=== PATIENT | male | born 1995 | race Caucasian/White ===

== ENCOUNTER 2016-06-06 12:38 | Emergency (ER) | payer SELFPAY ==
--- NOTE | 2016-06-06 13:44 | ED ORDER SUMMARY ---
..... Patient: TRUMAN VELAZQUEZ OrderSheet [facility] VisitID: [id number] [address] [place] [address] 21y, M Registration Date/Time: 06/06/2016 ORDER SHEET Weight: 70.3 kg (stated) Allergies: No Known Drug Allergy GENERAL ORDERS: Culture, Strep Screen Urgent (13:12 06/06/2016 Cristian Chilel) (13:13 Zayra R.N.) MEDICATION ORDERS: Toradol IM 60 mg (NOW) (13:12 06/06/2016 Cristian Chilel) (Ack 13:13 Zayra R.N.) (13:28 Anne Wright.Jonatan) IV FLUIDS: ORDER SHEET NOTES: [Electronically signed by Satya Magallon Dr. (13:47 06/06/2016)] [Electronically signed by Shailesh Michele R.N. (15:42 06/06/2016)] [Electronically locked/signed by Shailesh Michele R.N. (15:42 06/06/2016)]
--- NOTE | 2016-06-06 13:44 | ED NURSING NOTES ---
Clinical Report - Nurses [facility] [address] [place] [address] 06/06/2016 12:40 Patient: TRUMAN VELAZQUEZ TRIAGE Triage time 12:46 Jun 06 2016. Acuity: LEVEL 4. Chief Complaint: RIGHT EAR PAIN. --12:52 Shailesh Michele R.N. 12:46 06/06/16. BP: 146/94. HR: 105. RR: 18. O2 saturation: 95% on room air. Temp: 97.8 F. Pain level now: 11/24. --12:52 Shailesh Michele R.N. Weight: 70.3 kg stated. Height/Length: 70 inches Per Patient. BMI: 22.2. --12:45 Shailesh Michele R.N. Medications None. --12:46 Shailesh Michele R.N. Allergies No Known Drug Allergy. --12:46 Shailesh Michele R.N. History Arrived by private vehicle. Historian: patient. Accompanied by friend. Onset. (a few days ago). He has had fever (pt reported). He has had moderate right-sided ear drainage. The ear drainage on the right has been associated with ear pain. He has had a sore throat. PAST MEDICAL HX: Negative. Immunizations: up-to-date. SURGERY HX: ( 12 years ago hernia rx, LLQ.). SOCIAL HX: Heavy tobacco smoker (cigarette)- less than 1 pack per day. Occasional alcohol use. Last drink was 2. History of drug use: marijuana. Recently used drugs days ago. FALL RISK ASSESSMENT: Fall risk assessment completed. No fall risk identified. NUTRITIONAL RISK ASSESSMENT: The nutritional risk assessment revealed no deficiencies. FUNCTIONAL ASSESSMENT: Functional assessment: no impairments noted. LEARNING NEEDS ASSESSMENT: The learning needs assessment revealed no barriers. SKIN INTEGRITY ASSESSMENT: Skin integrity risk assessment completed. No skin integrity risk identified. --12:52 Shailesh Michele R.N. Interventions ID band on patient. To treatment room. --12:52 Shailesh Michele R.N. PHYSICAL ASSESSMENT Ambulatory to room. GENERAL / NEURO / PSYCH: Alert. Appears in no acute distress. HEENT: No facial asymmetry noted. Pupils equal, round and reactive to light. Right-sided hearing deficit, as tested grossly. Nares within normal limits. RESPIRATORY: Respirations not labored. CVS: Capillary refill less than 2 seconds. SKIN: Skin is warm and dry. --12:53 Shailesh Michele R.N. NURSING PROGRESS NOTES Monitoring of patient in place. Head of bed elevated. Reassurance given. Two patient identifiers checked. Call light placed in reach. Bed placed in lowest position. Patient ready for evaluation- chart flagged. --12:54 Shailesh Michele R.N. 13:00 06/06/16. Checked patient name and birthdate. Throat swab obtained for rapid strep; labeled in the presence of the patient and sent to lab. --13:51 Shailesh Michele R.N. 13:28 06/06/2016 Toradol (Ketorolac Tromethamine) IM 60 mg given. Given in the right ventral gluteus. --13:28 Lissette Butterfield R.N. 13:49 06/06/2016 Toradol IM Response: no adverse reaction pain is improving. The patient feels better. --14:04 Shailesh Michele R.N. DISPOSITION / DISCHARGE 14:00 06/06/16. BP: 130/79. HR: 108. RR: 16. O2 saturation: 95% on room air. Temp: 99.9 F. Pain level now: 410. --14:03 Shailesh Michele R.N. Condition at departure: improved and stable. The goals identified in the patient's plan of care were met. No learning barriers present. Discharge instructions provided and reviewed with the patient. Reviewed medication(s) side effects, precautions, dosing and course information. Prescription(s) given to the patient. Patient verbalized understanding. Written instructions provided in [place]i. The patient was discharged by the physician. He was discharged home and accompanied by chicken cleaner. He left the Emergency Department ambulatory and via private vehicle. Manager Wellness driving. --14:04 Shailesh Michele R.N. Departure time: 1400. --14:04 Shailesh Michele R.N. Locked/Released at 06/06/2016 15:42 by Shailesh Michele R.N.
--- NOTE | 2016-06-06 13:44 | ED CLINICAL REPORT ---
Clinical Report - Physicians/Mid Levels [facility] [address] [place] [address] 06/06/2016 12:40 Patient: TRUMAN VELAZQUEZ Time Seen: 12:46; initial patient contact. Arrived- By private vehicle. Historian- patient. HISTORY OF PRESENT ILLNESS Chief Complaint: EARACHE. This started about 2 days ago and is still present. It was gradual in onset. The patient cannot recall the circumstances at the onset. Modifying factors. Not worsened by anything. Not relieved by anything. Location- right ear. The pain is described as moderate. The patient has had ear pain and drainage. No hearing loss, complaint of foreign body in the ear, ear trauma or recent barotrauma. He has had nasal congestion, sinus pressure and a nasal discharge and sore throat. Similar symptoms previously: None. Recent medical care: Not recently seen/assessed. REVIEW OF SYSTEMS The patient has had fever, chills and enlarged lymph nodes. No cough, difficulty breathing, headache, nausea or vomiting. No skin rash. All systems otherwise negative, except as recorded above. PAST HISTORY Negative. Problems: no known problems. Surgeries: Inguinal hernia repair. Medications: None. Allergies: No Known Drug Allergy. SOCIAL HISTORY Current every day smoker. Occasional alcohol use. No drug use. ADDITIONAL NOTES The nursing notes have been reviewed with agreement regarding the chief complaint, PMH and patient medications and allergies. PHYSICAL EXAM Vital Signs: 06/06/2016 12:46 BP: 146/94. HR: 105. RR: 18. O2 saturation: 95%. Temp: 97.8 F. Pain level now: 9/10. Have been reviewed. Hypertensive. Tachycardic. Respiratory rate normal. Temperature normal. Oxygen saturation normal. Appearance: Alert. Appears to be in pain. Eyes: Eyes normal inspection. Ear (left): Left ear normal. Left tympanic membrane normal. Ear (right): There is moderate erythema, dullness and bulging of the tympanic membrane, fluid behind the tympanic membrane and loss of tympanic membrane landmarks. There is an abnormal light reflex. Right ear normal. Throat: Moderate generalized pharyngeal erythema with right tonsillar swelling and exudate and left tonsillar swelling and exudate. Neck: Moderate right anterior neck and mild left anterior neck lymphadenopathy present. CVS: Normal heart rate and rhythm. Heart sounds normal. Respiratory: No respiratory distress. Breath sounds normal. Skin: Normal skin color. No rash. Neuro: Oriented X 3. LABS, X-RAYS, AND EKG Laboratory Tests: Culture, Strep Screen: (GERI: 06/06/2016 12:55) ( MsgRcvd 06/06/2016 13:37) Final results Test Result Flag Units (Reference) RAPID STREP SCREEN - THROAT CALLED TO: DR. MAGALLON -- DATE: 06/06/16 POSITIVE SCREEN: RAPID STREP SCREEN: POSITIVE FOR GROUP A STREP . PROGRESS AND PROCEDURES Disposition: Discharged home in good condition. Condition: good. CLINICAL IMPRESSION Acute suppurative right otitis media. No perforation of right tympanic membrane. Acute streptococcal pharyngitis INSTRUCTIONS Your Current Medications: CONTINUE TAKING THE FOLLOWING MEDICATIONS: None*. Prescription Medications: Amoxicillin 500 mg tablets: take 1 orally every 8 hours for 10 days. No refills. Diclofenac 50 mg tablets: take 1 tablet orally every 8 hours as needed for pain. Dispense thirty (30). No refill. Follow-up: Screening today revealed the patient's blood pressure to be in the hypertensive range. The patient should follow up with a primary care provider for blood pressure management. Follow-up with: [facility], , , [address], , [place], [address] Follow up as needed. Call for an appointment. (Electronically signed by Satya Magallon Dr. 06/06/2016 13:47)
--- NOTE | 2016-06-06 13:44 | ED CLINICAL REPORT ---
Clinical Report - Physicians/Mid Levels [facility] [address] [place] [address] 06/06/2016 12:40 Patient: TRUMAN VELAZQUEZ Time Seen: 12:46; initial patient contact. Arrived- By private vehicle. Historian- patient. HISTORY OF PRESENT ILLNESS Chief Complaint: EARACHE. This started about 2 days ago and is still present. It was gradual in onset. The patient cannot recall the circumstances at the onset. Modifying factors. Not worsened by anything. Not relieved by anything. Location- right ear. The pain is described as moderate. The patient has had ear pain and drainage. No hearing loss, complaint of foreign body in the ear, ear trauma or recent barotrauma. He has had nasal congestion, sinus pressure and a nasal discharge and sore throat. Similar symptoms previously: None. Recent medical care: Not recently seen/assessed. REVIEW OF SYSTEMS The patient has had fever, chills and enlarged lymph nodes. No cough, difficulty breathing, headache, nausea or vomiting. No skin rash. All systems otherwise negative, except as recorded above. PAST HISTORY Negative. Problems: no known problems. Surgeries: Inguinal hernia repair. Medications: None. Allergies: No Known Drug Allergy. SOCIAL HISTORY Current every day smoker. Occasional alcohol use. No drug use. ADDITIONAL NOTES The nursing notes have been reviewed with agreement regarding the chief complaint, PMH and patient medications and allergies. PHYSICAL EXAM Vital Signs: 06/06/2016 12:46 BP: 146/94. HR: 105. RR: 18. O2 saturation: 95%. Temp: 97.8 F. Pain level now: 9/10. Have been reviewed. Hypertensive. Tachycardic. Respiratory rate normal. Temperature normal. Oxygen saturation normal. Appearance: Alert. Appears to be in pain. Eyes: Eyes normal inspection. Ear (left): Left ear normal. Left tympanic membrane normal. Ear (right): There is moderate erythema, dullness and bulging of the tympanic membrane, fluid behind the tympanic membrane and loss of tympanic membrane landmarks. There is an abnormal light reflex. Right ear normal. Throat: Moderate generalized pharyngeal erythema with right tonsillar swelling and exudate and left tonsillar swelling and exudate. Neck: Moderate right anterior neck and mild left anterior neck lymphadenopathy present. CVS: Normal heart rate and rhythm. Heart sounds normal. Respiratory: No respiratory distress. Breath sounds normal. Skin: Normal skin color. No rash. Neuro: Oriented X 3. LABS, X-RAYS, AND EKG Laboratory Tests: Culture, Strep Screen: (GERI: 06/06/2016 12:55) ( MsgRcvd 06/06/2016 13:37) Final results Test Result Flag Units (Reference) RAPID STREP SCREEN - THROAT CALLED TO: DR. MAGALLON -- DATE: 06/06/16 POSITIVE SCREEN: RAPID STREP SCREEN: POSITIVE FOR GROUP A STREP . PROGRESS AND PROCEDURES Disposition: Discharged home in good condition. Condition: good. CLINICAL IMPRESSION Acute suppurative right otitis media. No perforation of right tympanic membrane. Acute streptococcal pharyngitis INSTRUCTIONS Your Current Medications: CONTINUE TAKING THE FOLLOWING MEDICATIONS: None*. Prescription Medications: Amoxicillin 500 mg tablets: take 1 orally every 8 hours for 10 days. No refills. Diclofenac 50 mg tablets: take 1 tablet orally every 8 hours as needed for pain. Dispense thirty (30). No refill. Follow-up: Screening today revealed the patient's blood pressure to be in the hypertensive range. The patient should follow up with a primary care provider for blood pressure management. Follow-up with: [facility], , , [address], , [place], [address] Follow up as needed. Call for an appointment. (Electronically signed by Satya Magallon Dr. 06/06/2016 13:47)
--- NOTE | 2016-06-06 13:44 | ED NURSING NOTES ---
Clinical Report - Nurses [facility] [address] [place] [address] 06/06/2016 12:40 Patient: TRUMAN VELAZQUEZ TRIAGE Triage time 12:46 Jun 06 2016. Acuity: LEVEL 4. Chief Complaint: RIGHT EAR PAIN. --12:52 Shailesh Michele R.N. 12:46 06/06/16. BP: 146/94. HR: 105. RR: 18. O2 saturation: 95% on room air. Temp: 97.8 F. Pain level now: 11/24. --12:52 Shailesh Michele R.N. Weight: 70.3 kg stated. Height/Length: 70 inches Per Patient. BMI: 22.2. --12:45 Shailesh Michele R.N. Medications None. --12:46 Shailesh Michele R.N. Allergies No Known Drug Allergy. --12:46 Shailesh Michele R.N. History Arrived by private vehicle. Historian: patient. Accompanied by friend. Onset. (a few days ago). He has had fever (pt reported). He has had moderate right-sided ear drainage. The ear drainage on the right has been associated with ear pain. He has had a sore throat. PAST MEDICAL HX: Negative. Immunizations: up-to-date. SURGERY HX: ( 12 years ago hernia rx, LLQ.). SOCIAL HX: Heavy tobacco smoker (cigarette)- less than 1 pack per day. Occasional alcohol use. Last drink was 2. History of drug use: marijuana. Recently used drugs days ago. FALL RISK ASSESSMENT: Fall risk assessment completed. No fall risk identified. NUTRITIONAL RISK ASSESSMENT: The nutritional risk assessment revealed no deficiencies. FUNCTIONAL ASSESSMENT: Functional assessment: no impairments noted. LEARNING NEEDS ASSESSMENT: The learning needs assessment revealed no barriers. SKIN INTEGRITY ASSESSMENT: Skin integrity risk assessment completed. No skin integrity risk identified. --12:52 Shailesh Michele R.N. Interventions ID band on patient. To treatment room. --12:52 Shailesh Michele R.N. PHYSICAL ASSESSMENT Ambulatory to room. GENERAL / NEURO / PSYCH: Alert. Appears in no acute distress. HEENT: No facial asymmetry noted. Pupils equal, round and reactive to light. Right-sided hearing deficit, as tested grossly. Nares within normal limits. RESPIRATORY: Respirations not labored. CVS: Capillary refill less than 2 seconds. SKIN: Skin is warm and dry. --12:53 Shailesh Michele R.N. NURSING PROGRESS NOTES Monitoring of patient in place. Head of bed elevated. Reassurance given. Two patient identifiers checked. Call light placed in reach. Bed placed in lowest position. Patient ready for evaluation- chart flagged. --12:54 Shailesh Michele R.N. 13:00 06/06/16. Checked patient name and birthdate. Throat swab obtained for rapid strep; labeled in the presence of the patient and sent to lab. --13:51 Shailesh Michele R.N. 13:28 06/06/2016 Toradol (Ketorolac Tromethamine) IM 60 mg given. Given in the right ventral gluteus. --13:28 Lissette Butterfield R.N. 13:49 06/06/2016 Toradol IM Response: no adverse reaction pain is improving. The patient feels better. --14:04 Shailesh Michele R.N. DISPOSITION / DISCHARGE 14:00 06/06/16. BP: 130/79. HR: 108. RR: 16. O2 saturation: 95% on room air. Temp: 99.9 F. Pain level now: 410. --14:03 Shailesh Michele R.N. Condition at departure: improved and stable. The goals identified in the patient's plan of care were met. No learning barriers present. Discharge instructions provided and reviewed with the patient. Reviewed medication(s) side effects, precautions, dosing and course information. Prescription(s) given to the patient. Patient verbalized understanding. Written instructions provided in Italian. The patient was discharged by the physician. He was discharged home and accompanied by pig breeder. He left the Emergency Department ambulatory and via private vehicle. Concert Promoter driving. --14:04 Shailesh Michele R.N. Departure time: 1400. --14:04 Shailesh Michele R.N. Locked/Released at 06/06/2016 15:42 by Shailesh Michele R.N.
--- NOTE | 2016-06-06 13:44 | ED ORDER SUMMARY ---
..... Patient: TRUMAN VELAZQUEZ OrderSheet [facility] VisitID: [id number] [address] [place] [address] 21y, M Registration Date/Time: 06/06/2016 ORDER SHEET Weight: 70.3 kg (stated) Allergies: No Known Drug Allergy GENERAL ORDERS: Culture, Strep Screen Urgent (13:12 06/06/2016 Cristian Chilel) (13:13 Zayra R.N.) MEDICATION ORDERS: Toradol IM 60 mg (NOW) (13:12 06/06/2016 Cristian Chilel) (Ack 13:13 Zayra R.N.) (13:28 Anne Wright.Jonatan) IV FLUIDS: ORDER SHEET NOTES: [Electronically signed by Satya Magallon Dr. (13:47 06/06/2016)] [Electronically signed by Shailesh Michele R.N. (15:42 06/06/2016)] [Electronically locked/signed by Shailesh Michele R.N. (15:42 06/06/2016)]
--- NOTE | 2016-06-06 15:42 | ED MAR SUMMARY ---
..... Medication Administration Record [facility] [address] [place] [address] Patient: TRUMAN VELAZQUEZ Visit ID: [id number] 21y, M Weight: 70.3 kg Height/Length: 70 in BMI: 22.2 ALLERGIES: No Known Drug Allergy Given 13:28 06/06/2016 Lissette Butterfield R.N. Medication Administered: TORADOL [IM] (KETOROLAC TROMETHAMINE), Dose: 60 mg IM. Medication Ordered: Toradol IM 60 mg (NOW).
--- NOTE | 2016-06-06 15:42 | ED DISCHARGE INSTRUCTIONS ---
Patient: TRUMAN VELAZQUEZ General Instructions [facility] VisitID: [id number] [address] [place] [place] [address] 21y, M Registration Date/Time: 06/06/2016 Acute suppurative right otitis media. No perforation of right tympanic membrane. Acute streptococcal pharyngitis INSTRUCTIONS Your Current Medications: CONTINUE TAKING THE FOLLOWING MEDICATIONS: None*. Prescription Medications: Amoxicillin 500 mg tablets: take 1 orally every 8 hours for 10 days. No refills. Diclofenac 50 mg tablets: take 1 tablet orally every 8 hours as needed for pain. Dispense thirty (30). No refill. Follow-up: Screening today revealed the patient's blood pressure to be in the hypertensive range. The patient should follow up with a primary care provider for blood pressure management. Follow-up with: [facility], , , [address], , [place], [id number] Follow up as needed. Call for an appointment. ADDITIONAL INFORMATION Middle Ear Infection (Adult) You have an infection of the middle ear (the space behind the eardrum). It can occur as a result of the common cold. This is because congestion can block the internal passage (eustachian tube) that drains fluid from the middle ear. When the middle ear fills with fluid, bacteria can grow there and cause an infection. Oral antibiotics are used to treat this illness, not ear drops. Symptoms usually start to improve within 1-2 days of treatment. Home Care: Finish all of the antibiotic medicine prescribed, even though you may feel better after the first few days. You may use acetaminophen (Tylenol) or ibuprofen (Motrin, Advil) to control pain, unless something else was prescribed. [NOTE: If you have chronic liver or kidney disease or have ever had a stomach ulcer or GI bleeding, talk with your doctor before using these medicines.] (Do not give aspirin to anyone under 18 years of age who is ill with a fever. It may cause severe liver damage.) Follow Up with your doctor or this facility in two weeks if all symptoms have not cleared, or if hearing does not return to normal within one month. Get Prompt Medical Attention if any of the following occur: Ear pain gets worse or does not improve after three days of treatment Unusual drowsiness or confusion Neck pain, stiff neck or headache Fluid or blood draining from the ear canal Fever of 100.4F (38C) or higher after 3 days of antibiotics, or as directed by your healthcare provider Convulsion (seizure) Pharyngitis: Strep [Confirmed] Your test for strep throat was positive. Strep throat is a contagious illness. It is spread by coughing, kissing or by touching others after touching your mouth or nose. Symptoms include throat pain which is worse with swallowing, aching all over, headache and fever. You will be treated with an antibiotic which should make you start to feel better within 1-2 days. Home Care: Rest at home and drink plenty of fluids to avoid dehydration. No school or work for the first two days on antibiotics. You will not be contagious after this time and if you are feeling better, you can return to school or work. Take your antibiotics for a full 10 days, even if you feel better after the first few days of treatment. This is very important to prevent heart or kidney disease that can result as a complication of untreated strep throat infection. Children: Use acetaminophen (Tylenol) for fever, fussiness or discomfort. In infants over six months of age, you may use ibuprofen (Children's Motrin) instead of Tylenol. [NOTE: If your child has chronic liver or kidney disease or ever had a stomach ulcer or GI bleeding, talk with your doctor before using these medicines.] (Aspirin should never be used in anyone under 18 years of age who is ill with a fever. It may cause severe liver damage.)Adults: You may use acetaminophen (Tylenol) or ibuprofen (Motrin, Advil) to control pain or fever, unless another medicine was prescribed for this. [NOTE: If you have chronic liver or kidney disease or ever had a stomach ulcer or GI bleeding, talk with your doctor before using these medicines.] Throat lozenges or sprays (Chloraseptic and others) will reduce pain. Gargling with warm salt water will also reduce throat pain. Dissolve 1/2 teaspoon of salt in 1 glass of warm water. This is especially useful just before meals. Follow Up with your doctor or as directed by our staff if you are not improving over the next week. Get Prompt Medical Attention if any of the following occur: Fever of 100.4F (38C) oral or higher, not better with fever medication New or worsening ear pain, sinus pain or headache Painful lumps in the back of your neck Unable to swallow liquids or open your mouth wide due to throat pain Trouble breathing or noisy breathing Muffled voice New rash Amoxicillin Trihydrate Oral tablet What is this medicine? AMOXICILLIN (a mox i BOWEN in) is a penicillin antibiotic. It is used to treat certain kinds of bacterial infections. It will not work for colds, flu, or other viral infections. How should I use this medicine? Take this medicine by mouth with a glass of water. Follow the directions on your prescription label. You may take this medicine with food or on an empty stomach. Take your medicine at regular intervals. Do not take your medicine more often than directed. Take all of your medicine as directed even if you think your are better. Do not skip doses or stop your medicine early. Talk to your machine driller regarding the use of this medicine in children. While this drug may be prescribed for selected conditions, precautions do apply. What side effects may I notice from receiving this medicine? Side effects that you should report to your doctor or health patient care provider as soon as possible: allergic reactions like skin rash, itching or hives, swelling of the face, lips, or tongue breathing problems dark urine redness, blistering, peeling or loosening of the skin, including inside the mouth seizures severe or watery diarrhea trouble passing urine or change in the amount of urine unusual bleeding or bruising unusually weak or tired yellowing of the eyes or skin Side effects that usually do not require medical attention (report to your doctor or health patient care provider if they continue or are bothersome): dizziness headache stomach upset trouble sleeping What may interact with this medicine? amiloride control pills chloramphenicol macrolides probenecid sulfonamides tetracyclines What if I miss a dose? If you miss a dose, take it as soon as you can. If it is almost time for your next dose, take only that dose. Do not take double or extra doses. Where should I keep my medicine? Keep out of the reach of children. Store between 68 and 77 degrees F (20 and 25 degrees C). Keep bottle closed tightly. Throw away any unused medicine after the expiration date. What should I tell my health care provider before I take this medicine? They need to know if you have any of these conditions: asthma kidney disease an unusual or allergic reaction to amoxicillin, other penicillins, cephalosporin antibiotics, other medicines, foods, dyes, or preservatives or trying to get breast-feeding What should I watch for while using this medicine? Tell your doctor or health patient care provider if your symptoms do not improve in 2 or 3 days. Take all of the doses of your medicine as directed. Do not skip doses or stop your medicine early. If you are diabetic, you may get a false positive result for sugar in your urine with certain brands of urine tests. Check with your doctor. Do not treat diarrhea with [id number] products. Contact your doctor if you have diarrhea that lasts more than 2 days or if the diarrhea is severe and watery. You have been given the following additional information: Otitis Media, Abx Tx (Adult) Pharyngitis, Strep (Confirmed) Amoxicillin Trihydrate Oral tablet (Electronically signed by Satya Maglalon Dr. 06/06/2016 13:47)
--- NOTE | 2016-06-06 15:42 | ED MED RECONCILIATION SUMMARY ---
Patient: TRUMAN VELAZQUEZ Medication Reconciliation Report [facility] VisitID: [id number] [address] [place] [address] 21y, M Registration Date/Time: 06/06/2016 Weight: 70.3 kg Height/Length: 70 in. BMI: 22.2 ALLERGIES: No Known Drug Allergy The patient's Home Medications are listed below: NONE. The source(s) of the original Home Medication information: Not obtained. The following Medications were given to the patient in the Emergency Department: Toradol [IM] IM 60 mg, administered: 06/06/2016 1:28:00 PM The following Medications were prescribed to the patient: Amoxicillin 500 mg tablets: take 1 orally every 8 hours for 10 days. No refills. -- Satya Magallon Dr. Diclofenac 50 mg tablets: take 1 tablet orally every 8 hours as needed for pain. Dispense thirty (30). No refill. -- Satya Magallon Dr.
--- NOTE | 2016-06-06 15:42 | ED DISCHARGE INSTRUCTIONS ---
Patient: TRUMAN VELAZQUEZ General Instructions [facility] VisitID: [id number] [address] [address] 21y, M Registration Date/Time: 06/06/2016 Acute suppurative right otitis media. No perforation of right tympanic membrane. Acute streptococcal pharyngitis INSTRUCTIONS Your Current Medications: CONTINUE TAKING THE FOLLOWING MEDICATIONS: None*. Prescription Medications: Amoxicillin 500 mg tablets: take 1 orally every 8 hours for 10 days. No refills. Diclofenac 50 mg tablets: take 1 tablet orally every 8 hours as needed for pain. Dispense thirty (30). No refill. Follow-up: Screening today revealed the patient's blood pressure to be in the hypertensive range. The patient should follow up with a primary care provider for blood pressure management. Follow-up with: [facility], , , [address], , [place], [address] Follow up as needed. Call for an appointment. ADDITIONAL INFORMATION Middle Ear Infection (Adult) You have an infection of the middle ear (the space behind the eardrum). It can occur as a result of the common cold. This is because congestion can block the internal passage (eustachian tube) that drains fluid from the middle ear. When the middle ear fills with fluid, bacteria can grow there and cause an infection. Oral antibiotics are used to treat this illness, not ear drops. Symptoms usually start to improve within 1-2 days of treatment. Home Care: Finish all of the antibiotic medicine prescribed, even though you may feel better after the first few days. You may use acetaminophen (Tylenol) or ibuprofen (Motrin, Advil) to control pain, unless something else was prescribed. [NOTE: If you have chronic liver or kidney disease or have ever had a stomach ulcer or GI bleeding, talk with your doctor before using these medicines.] (Do not give aspirin to anyone under 18 years of age who is ill with a fever. It may cause severe liver damage.) Follow Up with your doctor or this facility in two weeks if all symptoms have not cleared, or if hearing does not return to normal within one month. Get Prompt Medical Attention if any of the following occur: Ear pain gets worse or does not improve after three days of treatment Unusual drowsiness or confusion Neck pain, stiff neck or headache Fluid or blood draining from the ear canal Fever of 100.4F (38C) or higher after 3 days of antibiotics, or as directed by your healthcare provider Convulsion (seizure) Pharyngitis: Strep [Confirmed] Your test for strep throat was positive. Strep throat is a contagious illness. It is spread by coughing, kissing or by touching others after touching your mouth or nose. Symptoms include throat pain which is worse with swallowing, aching all over, headache and fever. You will be treated with an antibiotic which should make you start to feel better within 1-2 days. Home Care: Rest at home and drink plenty of fluids to avoid dehydration. No school or work for the first two days on antibiotics. You will not be contagious after this time and if you are feeling better, you can return to school or work. Take your antibiotics for a full 10 days, even if you feel better after the first few days of treatment. This is very important to prevent heart or kidney disease that can result as a complication of untreated strep throat infection. Children: Use acetaminophen (Tylenol) for fever, fussiness or discomfort. In infants over six months of age, you may use ibuprofen (Children's Motrin) instead of Tylenol. [NOTE: If your child has chronic liver or kidney disease or ever had a stomach ulcer or GI bleeding, talk with your doctor before using these medicines.] (Aspirin should never be used in anyone under 18 years of age who is ill with a fever. It may cause severe liver damage.)Adults: You may use acetaminophen (Tylenol) or ibuprofen (Motrin, Advil) to control pain or fever, unless another medicine was prescribed for this. [NOTE: If you have chronic liver or kidney disease or ever had a stomach ulcer or GI bleeding, talk with your doctor before using these medicines.] Throat lozenges or sprays (Chloraseptic and others) will reduce pain. Gargling with warm salt water will also reduce throat pain. Dissolve 1/2 teaspoon of salt in 1 glass of warm water. This is especially useful just before meals. Follow Up with your doctor or as directed by our staff if you are not improving over the next week. Get Prompt Medical Attention if any of the following occur: Fever of 100.4F (38C) oral or higher, not better with fever medication New or worsening ear pain, sinus pain or headache Painful lumps in the back of your neck Unable to swallow liquids or open your mouth wide due to throat pain Trouble breathing or noisy breathing Muffled voice New rash Amoxicillin Trihydrate Oral tablet What is this medicine? AMOXICILLIN (a mox i BOWEN in) is a penicillin antibiotic. It is used to treat certain kinds of bacterial infections. It will not work for colds, flu, or other viral infections. How should I use this medicine? Take this medicine by mouth with a glass of water. Follow the directions on your prescription label. You may take this medicine with food or on an empty stomach. Take your medicine at regular intervals. Do not take your medicine more often than directed. Take all of your medicine as directed even if you think your are better. Do not skip doses or stop your medicine early. Talk to your fish pitcher regarding the use of this medicine in children. While this drug may be prescribed for selected conditions, precautions do apply. What side effects may I notice from receiving this medicine? Side effects that you should report to your doctor or health rn medicare as soon as possible: allergic reactions like skin rash, itching or hives, swelling of the face, lips, or tongue breathing problems dark urine redness, blistering, peeling or loosening of the skin, including inside the mouth seizures severe or watery diarrhea trouble passing urine or change in the amount of urine unusual bleeding or bruising unusually weak or tired yellowing of the eyes or skin Side effects that usually do not require medical attention (report to your doctor or health rn medicare if they continue or are bothersome): dizziness headache stomach upset trouble sleeping What may interact with this medicine? amiloride control pills chloramphenicol macrolides probenecid sulfonamides tetracyclines What if I miss a dose? If you miss a dose, take it as soon as you can. If it is almost time for your next dose, take only that dose. Do not take double or extra doses. Where should I keep my medicine? Keep out of the reach of children. Store between 68 and 77 degrees F (20 and 25 degrees C). Keep bottle closed tightly. Throw away any unused medicine after the expiration date. What should I tell my health care provider before I take this medicine? They need to know if you have any of these conditions: asthma kidney disease an unusual or allergic reaction to amoxicillin, other penicillins, cephalosporin antibiotics, other medicines, foods, dyes, or preservatives or trying to get breast-feeding What should I watch for while using this medicine? Tell your doctor or health rn medicare if your symptoms do not improve in 2 or 3 days. Take all of the doses of your medicine as directed. Do not skip doses or stop your medicine early. If you are diabetic, you may get a false positive result for sugar in your urine with certain brands of urine tests. Check with your doctor. Do not treat diarrhea with [id number] products. Contact your doctor if you have diarrhea that lasts more than 2 days or if the diarrhea is severe and watery. You have been given the following additional information: Otitis Media, Abx Tx (Adult) Pharyngitis, Strep (Confirmed) Amoxicillin Trihydrate Oral tablet (Electronically signed by Satya Magallon Dr. 06/06/2016 13:47)
--- NOTE | 2016-06-06 15:42 | ED MAR SUMMARY ---
..... Medication Administration Record [facility] [address] [place] [address] Patient: TRUMAN VELAZQUEZ Visit ID: [id number] 21y, M Weight: 70.3 kg Height/Length: 70 in BMI: 22.2 ALLERGIES: No Known Drug Allergy Given 13:28 06/06/2016 Lissette Butterfield R.N. Medication Administered: TORADOL [IM] (KETOROLAC TROMETHAMINE), Dose: 60 mg IM. Medication Ordered: Toradol IM 60 mg (NOW).
--- NOTE | 2016-06-06 15:42 | ED MED RECONCILIATION SUMMARY ---
Patient: TRUMAN VELAZQUEZ Medication Reconciliation Report [facility] VisitID: [id number] [address] [place] [address] 21y, M Registration Date/Time: 06/06/2016 Weight: 70.3 kg Height/Length: 70 in. BMI: 22.2 ALLERGIES: No Known Drug Allergy The patient's Home Medications are listed below: NONE. The source(s) of the original Home Medication information: Not obtained. The following Medications were given to the patient in the Emergency Department: Toradol [IM] IM 60 mg, administered: 06/06/2016 1:28:00 PM The following Medications were prescribed to the patient: Amoxicillin 500 mg tablets: take 1 orally every 8 hours for 10 days. No refills. -- Satya Magallon Dr. Diclofenac 50 mg tablets: take 1 tablet orally every 8 hours as needed for pain. Dispense thirty (30). No refill. -- Satya Magallon Dr.
== END 2016-06-06 14:00 | disposition home or self-care (01) ==
LOC: ED SRH 12:38
DX: H66.001 Acute suppurative otitis media without spontaneous rupture of ear drum, right ear (principal); J02.0 Streptococcal pharyngitis; F17.210 Nicotine dependence, cigarettes, uncomplicated
CPT/HCPCS: 90154